=== PATIENT | male | born 1950 | race Hispanic/Latino ===

== ENCOUNTER 2017-07-12 05:28 | Emergency (ER) | payer MEDICARE, OTHER ==
[2017-07-12 05:40] VITALS: BMI 28.7
[2017-07-12 05:44] VITALS: TEMP 98.1
[2017-07-12] MEDS ORDERED: Labetalol 25mg/5ml Syringe ONE (06:06)
--- NOTE | 2017-07-12 06:07 | C.PDOC ---
History Of Present Illness patient has not taken his blood pressure medications for a while, because he lost his medical insurance and could not afford his meds. Presents with headache. no slurred speech,. no visual changes, no chest pain or palpitations. Dull throbbing pain Time Seen by Provider: 07/12/17 05:57 Chief Complaint (Nursing): High Blood Pressure History Per: Patient History/Exam Limitations: no limitations Onset/Duration Of Symptoms: Other (months) Current Symptoms Are (Timing): Still Present Associated Symptoms: Headache. denies: Chest Pain Quality Of Symptoms: denies: Rapid Heart Rate Severity: Moderate Pain Scale Rating Of: 4 Exacerbating Factor(s): Pos: Recently Missed Doses Of Medication Recent travel outside of the [place]: No Additional History Per: Patient Past Medical History Reviewed: Historical Data, Nursing Documentation, Vital Signs Vital Signs: Last Vital Signs Temp 98.1 F 07/12/17 05:40 Pulse 64 07/12/17 06:43 Resp 16 07/12/17 06:43 BP 149/106 H 07/12/17 06:43 Pulse Ox 97 07/12/17 06:43 - Medical History PMH: HTN Denies: Chronic Kidney Disease Family History: States: No Known Family Hx - Social History Hx Alcohol Use: No Hx Substance Use: No - Immunization History Hx Tetanus Toxoid Vaccination: No Hx Influenza Vaccination: No Hx Pneumococcal Vaccination: No Review Of Systems Constitutional: Negative for: Fever, Chills Eyes: Negative for: Redness ENT: Negative for: Throat Pain Cardiovascular: Negative for: Chest Pain Respiratory: Negative for: Shortness of Breath Gastrointestinal: Negative for: Nausea, Vomiting, Abdominal Pain Genitourinary: Negative for: Dysuria Musculoskeletal: Negative for: Back Pain Skin: Negative for: Rash Neurological: Positive for: Headache. Negative for: Change in Speech Psych: Negative for: Anxiety Physical Exam - Physical Exam Appears: Non-toxic Skin: Warm, Dry Head: Normacephalic Eye(s): bilateral: Normal Inspection Oral Mucosa: Moist Neck: Trachea Midline, Supple Chest: Symmetrical Cardiovascular: Rhythm Regular Respiratory: No Rales, No Rhonchi, No Wheezing Gastrointestinal/Abdominal: Soft, No Tenderness, No Distention, Other (obese) Extremity: Normal ROM, Pedal Edema (trace) Extremity: Bilateral: Atraumatic, Normal Color And Temperature Pulses: Left Dorsalis Pedis: Normal, Right Dorsalis Pedis: Normal Neurological/Psych: Oriented x3, Normal Speech, Normal Cognition Gait: Steady ED Course And Treatment - Laboratory Results Result Diagrams: 07/12/17 06:13 07/12/17 06:13 ECG: Interpreted By Me, Viewed By Me ECG Rhythm: Sinus Rhythm (71), Nonspecific Changes (lad, lvh, unchanged from ) O2 Sat by Pulse Oximetry: 98 Pulse Ox Interpretation: Normal - Radiology CXR: Interpreted by Me, Viewed By Me CXR Interpretation: Yes: Cardiomegaly. No: Infiltrates, Fracture Disposition Counseled Patient/Family Regarding: Studies Performed, Diagnosis - Disposition Disposition Time: 06:07 Condition: FAIR Forms: [facility] [facility] (Hungarian) - Clinical Impression Clinical Impression: Hypertensive urgency Physician Patient Turnover Patient Signed Over To: María Powers Handoff Comments: pending labs and disposition
[2017-07-12] MEDS ORDERED: Labetalol 25mg/5ml Syringe IVP STA (06:08)
[2017-07-12 06:19] LABS: BASO # 0.1 K/uL (0.0-0.2); BASO % 0.9 % (0.0-2.0); EOS # 0.3 K/uL (0.0-0.7); EOS % 2.9 % (0.0-4.0); HEMATOCRIT 45.4 % (35.0-51.0); LYMPH # 1.8 K/uL (1.0-4.3); LYMPH % 18.8 % (20.0-40.0); MEAN CELL VOLUME 83.8 fL (80.0-94.0); MEAN CORPUSCULAR HEMOGLOBIN 29.4 pg (27.0-31.0); MEAN CORPUSCULAR HGB CONC 35.1 g/dL (33.0-37.0); MEAN PLATELET VOLUME 8.9 fL (7.2-11.7); MONO # 0.7 K/uL (0.0-0.8); MONO % 7.5 % (0.0-10.0); RED CELL DISTRIBUTION WIDTH 15.2 % (11.5-14.5); WHITE BLOOD COUNT 9.7 K/uL (4.8-10.8)
[2017-07-12 06:29] LABS: ALB/GLOB RATIO 1.2 (1.0-2.1); ALKALINE PHOSPHATASE 71 U/L (38-126); ALT/SGPT 20 U/L (21-72); AST/SGOT 17 U/L (17-59); BILIRUBIN,TOTAL 0.9 mg/dL (0.2-1.3); BLOOD UREA NITROGEN 16 mg/dL (9-20); CALCIUM 9.4 mg/dl (8.6-10.4); CARBON DIOXIDE 26 mmol/L (22-30); CHLORIDE 102 mmol/L (98-107); GFR AFRICAN-AMERICAN > 60; GLUCOSE,RANDOM 103 mg/dL (75-110); POTASSIUM 3.6 mmol/L (3.6-5.2); SODIUM 145 mmol/L (132-148); TOTAL PROTEIN 7.3 g/dL (6.3-8.3)
--- NOTE | 2017-07-12 06:51 | CT ---
EXAM: CT Head Without Intravenous Contrast EXAM DATE/TIME: 07/12/2017 6:08 AM CLINICAL HISTORY: 67 years old, male; Condition or disease; Headache; Additional info: Headache, HTN TECHNIQUE: Axial computed tomography images of the head/brain without intravenous contrast. All CT scans at this facility use one or more dose reduction techniques, viz.: automated exposure control; ma/kV adjustment per patient size (including targeted exams where dose is matched to indication; i.e. head); or iterative reconstruction technique. COMPARISON: No relevant prior studies available. FINDINGS: Brain: Periventricular white matter changes of small vessel ischemic disease. 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 Mild cerebral atrophy. No hemorrhage. Ventricles: Unremarkable. No ventriculomegaly. Bones/joints: Unremarkable. No acute fracture. Soft tissues: Unremarkable. Sinuses: Minimal mucosal thickening of ethmoid and maxillary sinuses. Mastoid air cells: Unremarkable as visualized. No mastoid effusion. IMPRESSION: No acute cerebral hemorrhage or edema.
[2017-07-12 07:56] VITALS: O2SAT 97
--- NOTE | 2017-07-12 08:06 | RAD ---
PROCEDURE: CHEST RADIOGRAPH, 1 VIEW HISTORY: htn COMPARISON: 06/06/2016 FINDINGS: LUNGS: Bronchovascular markings mildly prominent -pulmonary venous congestion inferred PLEURA: No pneumothorax or pleural fluid seen. CARDIOVASCULAR: Mild cardiomegaly OSSEOUS STRUCTURES: Thoracic spondylosis VISUALIZED UPPER ABDOMEN: Normal. OTHER FINDINGS: Mammillated right hemidiaphragm IMPRESSION: Minimal mild pulmonary venous congestion -similar-appearing Mild cardiomegaly - interval increased conspicuity -possibly technical
[2017-07-12 08:10] LABS: RBC URINE < 1 /hpf (0-3); WBC URINE 2 /hpf (0-5)
[2017-07-12 08:36] VITALS: BP 168/104; PULSE 65; RESP 16
[2017-07-12 10:04] LABS: URINE BILIRUBIN NEGATIVE (NEGATIVE); URINE BLOOD NEGATIVE (NEGATIVE); URINE COLOR Yellow (YELLOW); URINE GLUCOSE (UA) NORMAL (Normal); URINE KETONE NEGATIVE (NEGATIVE); URINE LEUKOCYTE ESTERASE NEG Leu/uL (Negative); URINE PROTEIN 1+ mg/dL (NEGATIVE); URINE UROBILINOGEN NORMAL mg/dL (0.2-1.0)
--- NOTE | 2017-07-12 18:44 | CARD ---
APPROVED REPORT EKG Measurement Heart [id number] <Conclusion> Normal sinus rhythm Left axis deviation Left ventricular hypertrophy with QRS widening and repolarization abnormality Cannot rule out Septal infarct, age undetermined Abnormal ECG
== END 2017-07-12 10:37 | disposition home or self-care (01) ==
LOC: C.ER 05:28
DX: I16.0 Hypertensive urgency (principal)
CPT/HCPCS: 70450; 71010; 80053; 81001; 84484; 85025; 93005; 96374; 96375; 99285; J0360; J1885; J2405